=== PATIENT | male | born 1990 | race Caucasian/White ===

== ENCOUNTER 2016-09-15 09:33 | Emergency (ER) | payer SELFPAY ==
[~2016-09-15 09:33] MED LIST: NO MEDICATIONS
== END 2016-09-15 11:00 | disposition expired ==
LOC: CED 09:33
DX: I46.9 Cardiac arrest, cause unspecified (principal); F17.200 Nicotine dependence, unspecified, uncomplicated
CPT/HCPCS: 92950; 99284; 99285